=== PATIENT | male | born 1985 | race American Indian/Alaskan Native ===

== ENCOUNTER 2017-04-21 23:07 | Observation (INO) | payer SELFPAY ==
--- NOTE | 2017-04-22 00:59 | ED PDOC ---
HPI: Psych/Substance Abuse Time Seen by Provider: 04/21/17 23:13 Chief Complaint (Nursing): Psychiatric Evaluation Chief Complaint (Provider): brought for crisis eval History Per: Patient History/Exam Limitations: no limitations Onset/Duration Of Symptoms: Hrs Current Symptoms Are (Timing): Still Present Additional Complaint(s): 31yo male with questionable PMHx of depression brought to the ED for crisis eval. Patient reported to have erratic behavior witnessed by police [employer]. Patient states he took the train from [place] and lives in [place], [place] after having verbal altercation with his Aunt with whom he resides regarding payment of rent. This prompted patient to take the train to [place] and subsequently he came to [place]. Patient states he feels depressed and has been stressed lately related to work (patient works at [employer]). Denies auditory or visual hallucinations but appears internally preoccupied. Patient noted to have rambling speech. Past Medical History Reviewed: Historical Data, Nursing Documentation, Vital Signs Vital Signs: Last Vital Signs Temp 98.2 F 04/21/17 23:13 Pulse 79 04/21/17 23:13 Resp 18 04/21/17 23:13 BP 125/75 04/21/17 23:13 Pulse Ox 98 04/21/17 23:13 - Medical History PMH: No Chronic Diseases - Surgical History Surgical History: No Surg Hx - Family History Family History: States: No Known Family Hx - Social History Current smoker - smoking cessation education provided: No Alcohol: None Drugs: Denies - Allergies Allergies/Adverse Reactions: Allergies Allergy/AdvReac Type Severity Reaction Status Date / Time No Known Allergies Allergy Verified 04/21/17 23:16 Review of Systems ROS Statement: Except As Marked, All Systems Reviewed And Found Negative Psych: Positive for: Depression, Other (stressed, no auditory or visual hallucinations ) Physical Exam - Reviewed Nursing Documentation Reviewed: Yes Vital Signs Reviewed: Yes - Physical Exam Appears: Positive for: Well, No Acute Distress Head Exam: Positive for: ATRAUMATIC, NORMAL INSPECTION, NORMOCEPHALIC Skin: Positive for: Normal Color, Warm, Dry Eye Exam: Positive for: Normal appearance, EOMI, PERRL ENT: Positive for: Normal ENT Inspection Neck: Positive for: Normal, Painless ROM, Supple Cardiovascular/Chest: Positive for: Regular Rate, Rhythm. Negative for: Murmur , Tachycardia Respiratory: Positive for: Normal Breath Sounds. Negative for: Wheezing, Respiratory Distress Gastrointestinal/Abdominal: Positive for: Normal Exam, Soft. Negative for: Tenderness Back: Positive for: Normal Inspection Extremity: Positive for: Normal ROM. Negative for: Deformity, Swelling Neurologic/Psych: Positive for: Alert, Oriented. Negative for: Motor/Sensory Deficits - Laboratory Results Result Diagrams: 04/22/17 00:50 04/22/17 00:50 - ECG O2 Sat by Pulse Oximetry: 98 Pulse Ox Interpretation: Normal (RA) Medical Decision Making Medical Decision Makin: Impression: 31yo male brought for crisis eval for erratic behavior and possible depression Plan: Labs crisis eval reassess Patient s/o to Dr. Chavez at 0700 pending [facility] dhara jimenez. Scribe Attestation: Documented by Anne-Marie Tabor acting as a scribe for Sandeep Singer MD. Provider Scribe Attestation: All medical record entries made by the Scribe were at my direction and personally dictated by me. I have reviewed the chart and agree that the record accurately reflects my personal performance of the history, physical exam, medical decision making, and the department course for this patient. I have also personally directed, reviewed, and agree with the discharge instructions and disposition. ED OBSERVATION Date of observation admission: 04/22/17 Time of observation admission: 01:00 - Observation admission statement Patient is being placed in observation because:: psychosis - Goals of Observation Goals of observation are:: pending [facility] dhara jimenez - Progress Note Progress Note: 0300: Vitals stable, patient resting comfortably in bed. 0500: Vitals stable, patient resting comfortably in bed. Disposition - Clinical Impression Clinical Impression: Psychosis - Patient ED Disposition Is Patient to be Admitted: Transfer of Care - Disposition Disposition: Transfer of Care Disposition Time: 01:00 Condition: STABLE Patient Signed Over To: Kinjal Chavez Handoff Comments: pending [facility] dhara jimenez
[2017-04-22 01:20] LABS: BASO # 0.1 K/uL (0.0-0.2); BASO % 0.7 % (0.0-2.0); EOS # 0.2 K/uL (0.0-0.7); HEMATOCRIT 42.4 % (35.0-51.0); LYMPH # 2.3 K/uL (1.0-4.3); MEAN CELL VOLUME 88.8 fl (80.0-94.0); MEAN CORPUSCULAR HEMOGLOBIN 29.8 pg (27.0-31.0); MEAN CORPUSCULAR HGB CONC 33.5 g/dL (33.0-37.0); MEAN PLATELET VOLUME 9.2 fl (7.2-11.7); MONO # 0.8 K/uL (0.0-0.8); NEUT # 3.7 K/uL (1.8-7.0); NEUT % 52.3 % (50.0-75.0); RED CELL DISTRIBUTION WIDTH 13.3 % (11.5-14.5)
[2017-04-22 01:39] LABS: ALB/GLOB RATIO 1.5 (1.0-2.1); ALKALINE PHOSPHATASE 89 U/L (38-126); ALT/SGPT 27 U/L (21-72); AST/SGOT 31 U/L (17-59); BILIRUBIN,TOTAL 0.9 mg/dl (0.2-1.3); BLOOD UREA NITROGEN 14 mg/dl (9-20); CALCIUM 9.6 mg/dL (8.4-10.2); CARBON DIOXIDE 27 mmol/L (22-30); CHLORIDE 101 mmol/L (98-107); GFR AFRICAN-AMERICAN > 60; GLUCOSE,RANDOM 85 mg/dL (75-110); POTASSIUM 3.7 MMOL/L (3.6-5.0); SODIUM 138 mmol/l (132-148); TOTAL PROTEIN 7.6 G/DL (6.3-8.2)
[2017-04-22 03:30] LABS: RBC URINE 10 /hpf (0-3); URINE BACTERIA RARE (<OCC); URINE BILIRUBIN NEGATIVE (NEGATIVE); URINE BLOOD SMALL (NEGATIVE); URINE COLOR YELLOW (YELLOW); URINE GLUCOSE (UA) NEG (Normal); URINE KETONE 20 mg/dL (NEGATIVE); URINE LEUKOCYTE ESTERASE NEG Leu/uL (Negative); URINE PROTEIN NEGATIVE (NEGATIVE); URINE UROBILINOGEN 0.2-1.0 mg/dL (0.2-1.0); WBC URINE 3 /hpf (0-5)
--- NOTE | 2017-04-22 13:16 | CP.PCM.CON ---
History of Present Illness - History of Present Illness History of Present Illness: psychiatry consult ordered by er reason protocol cc: none hpi: 31 yo male brought to ER by police. apparenty bizarre beahviors. pt is not able to give any information and states i don't remember to every question. states he is from [place] but doesn't know why he came here. he states he's been in psych hospital before but cant name one. cannot tell his diagnosis. currently calm past psych: as above. cannot name dx or medications or placed of treatment medical: unknown substance use: denies. uds negative social: per chart lives in [place] with mother. also chart states pt stated he was homeless. mse: alert, oriented to self. memory impaired. mood is "fine" affect odd. pt internally preoccupied. denies an si/hi. denies any a/v hallucinations. poor i/ j. assessment: schizophrenia, unspecified recommendation: continue 1:1 transfer to [facility] when bed is available as he has been screened and accepted. Past Patient History - Past Social History Alcohol: None Drugs: Denies - CARDIAC Hx Cardiac Disorders: No Hx Hypertension: No - PULMONARY Hx Tuberculosis: No - NEUROLOGICAL HX Cerebrovascular Accident: No Hx Seizures: No - HEMATOLOGICAL/ONCOLOGICAL Hx Cancer: No Hx Human Immunodeficiency Virus (HIV): No - GENITOURINARY/GYNECOLOGICAL Hx Sexually Transmitted Disorders: No - PSYCHIATRIC Hx Psychophysiologic Disorder: No Hx Substance Use: No Meds Allergies/Adverse Reactions: Allergies Allergy/AdvReac Type Severity Reaction Status Date / Time No Known Allergies Allergy Verified 04/21/17 23:16 Results - Vital Signs Recent Vital Signs: Last Vital Signs Temp 97.9 F 04/22/17 03:04 Pulse 74 04/22/17 06:09 Resp 16 04/22/17 06:09 BP 129/68 04/22/17 06:09 Pulse Ox 98 04/22/17 06:42 - Labs Result Diagrams: 04/22/17 00:50 04/22/17 00:50 Labs: Laboratory Results - last 24 hr 04/22/17 02:45 Urine Color Yellow Urine Clarity Clear Urine pH 6.0 Ur Specific Saxis 1.028 Urine Protein Negative Urine Glucose (UA) Neg Urine Ketones 20 Urine Blood Small Urine Nitrate Negative Urine Bilirubin Negative Urine Urobilinogen 0.2-1.0 Ur Leukocyte Esterase Neg Urine RBC (Auto) 10 H Urine Microscopic WBC 3 Urine Bacteria Rare
--- NOTE | 2017-04-22 14:29 | ED PDOC ---
- Laboratory Results Result Diagrams: 04/22/17 00:50 04/22/17 00:50 - ECG O2 Sat by Pulse Oximetry: 98 Medical Decision Making Medical Decision Making: Received patient from Dr. Singer. Patient was seen by [facility] screener and accepted there. He is pending an available bed. He has been calm and cooperative. He has not required restraints or sedation. Disposition - Clinical Impression Clinical Impression: Psychosis - POA Present On Arrival: None - Disposition Disposition: Transfer of Care Disposition Time: 14:28 Condition: STABLE Patient Signed Over To: Lissy Chisholm
--- NOTE | 2017-04-22 14:51 | RAD ---
HISTORY: Medical clearance. COMPARISON: No prior. TECHNIQUE: Chest PA and lateral FINDINGS: LUNGS: No active pulmonary disease. PLEURA: No significant pleural effusion identified. No pneumothorax apparent. CARDIOVASCULAR: Normal. OSSEOUS STRUCTURES: No significant abnormalities. VISUALIZED UPPER ABDOMEN: Normal. OTHER FINDINGS: None. IMPRESSION: No active disease.
--- NOTE | 2017-04-22 15:52 | ED PDOC ---
- Laboratory Results Result Diagrams: 04/22/17 00:50 04/22/17 00:50 - ECG O2 Sat by Pulse Oximetry: 98 Medical Decision Making Medical Decision Makin:55 Pt states he is feeling anxious from being in small room, Xanax 0.25 mg PO ordered. 22:00 Pt agitated, going to other patient's room yelling at RN, unable to redirect, meds ordered, restraints ordered. Disposition - Clinical Impression Clinical Impression: Psychosis - POA Present On Arrival: None - Disposition Disposition: Transfer of Care Disposition Time: 00:00 Condition: STABLE Patient Signed Over To: Sandeep Singer Handoff Comments: Pending transfer to [facility]. Addendum Addendum: 04/22/17 15:00 Pt signed out [address] Dr[address] Chavez pending transfer to [facility].
[2017-04-22] MEDS ORDERED: diaZEpam 10 mg/2 ml Inj ONE (22:08)
[2017-04-22] MEDS ORDERED: diaZEpam 10 mg/2 ml Inj IM ONE (22:13)
[2017-04-22] MEDS ORDERED: diaZEpam 10 mg/2 ml Inj IM STA (22:18)
--- NOTE | 2017-04-23 02:36 | ED PDOC ---
- Laboratory Results Result Diagrams: 04/22/17 00:50 04/22/17 00:50 - ECG O2 Sat by Pulse Oximetry: 100 Medical Decision Making Medical Decision Making: Patient s/o to provider by Dr Hanna at 00:00 pending [facility] involuntary psychiatric bed availability Patient s/o C Katerina at 7AM pending [facility] involuntary psychiatric bed availability Disposition - Clinical Impression Clinical Impression: Psychosis - POA Present On Arrival: None - Disposition Disposition: Transfer of Care Disposition Time: 01:00 Condition: STABLE Patient Signed Over To: Demond Borges
--- NOTE | 2017-04-23 07:48 | ED PDOC ---
- Laboratory Results Result Diagrams: 04/22/17 00:50 04/22/17 00:50 - ECG O2 Sat by Pulse Oximetry: 100 (RA) Pulse Ox Interpretation: Normal Medical Decision Making Medical Decision Making: Receiving Sign Out: Pt signed out to me by Dr. Singer ay 0700 pending transfer to [facility]. Scribe Attestation: Documented by Mercy Navarrete acting as a scribe for Demond Borges MD. Provider Attestation: All medical record entries made by the Scribe were at my direction and personally dictated by me. I have reviewed the chart and agree that the record accurately reflects my personal performance of the history, physical exam, medical decision making, and the department course for this patient. I have also personally directed, reviewed, and agree with the discharge instructions and disposition. Disposition - Clinical Impression Clinical Impression: Psychosis - Disposition Condition: STABLE
[2017-04-23 09:35] VITALS: BP 108/64; PULSE 67; RESP 14; TEMP 98.4
--- NOTE | 2017-04-23 14:50 | CARD ---
APPROVED REPORT EKG Measurement Heart [id number] <Conclusion> Normal sinus rhythm Normal ECG
[2017-04-25 13:51] VITALS: O2SAT 98
== END 2017-04-23 10:26 ==
LOC: H.ER 23:07 → H.EROBSV 04-22 01:00
PROVIDERS: ADMIT Emergency Medicine; ATTEND Emergency Medicine
DX: F20.9 Schizophrenia, unspecified (principal); Z59.0 Homelessness
CPT/HCPCS: 71020; 80053; 81003; 82948; 85025; 93005; 96372; 99285; G0378; G0480; J1630; J3360